=== PATIENT | female | born 1975 | race Caucasian/White ===

== ENCOUNTER 2020-01-25 07:36 | Inpatient (IN) | payer OTHER ==
[~2020-01-25] VITALS: Ht 167.6 cm; Wt 62.6 kg
[2020-01-25 07:40] VITALS: Ht 167.6 cm; Wt 62.6 kg
[2020-01-25 08:06] LABS: BASOPHIL % 1.4 % (0-2); PLATELET COUNT 204 x10^3mcL (130-400)
[2020-01-25 08:29] LABS: CALCIUM 7.9 mg/dL (8.5-10.1); CARBON DIOXIDE 24.8 mmol/L (21-32); CHLORIDE SERUM 110 mmol/L (98-107); CREATININE SERUM 0.7 mg/dL (0.6-1.0); GFR1 > 60 mL/min; GLUCOSE SERUM 71 mg/dL (74-106); POTASSIUM SERUM 3.9 mmol/L (3.5-5.1); SODIUM SERUM 142 mmol/L (136-145)
[2020-01-25 08:34] LABS: ALBUMIN 3.2 g/dL (3.4-5.0); ALKALINE PHOSPHATASE 46 U/L (46-116); ALT/SGPT 25 U/L (14-59); AST/SGOT 19 U/L (15-37); BILIRUBIN TOTAL 0.4 mg/dL (0.20-1.00); TOTAL PROTEIN, SERUM 6.7 g/dL (6.4-8.2)
[2020-01-25 09:13] LABS: RED CELL DISTRIBUTION WIDTH 26.5 % (11.5-14.5)
[2020-01-25 09:56] LABS: rbc morphology (normal/abnorm) ABNORMAL (NORMAL)
[2020-01-25 09:58] LABS: rbc morphology (normal/abnorm) ABNORMAL (NORMAL)
[2020-01-25 10:39] LABS: TOTAL IRON BINDING CAPACITY 380 ug/dL (250-450)
[2020-01-25 10:40] LABS: IRON 21 ug/dL (50-170)
[2020-01-25 11:51] LABS: FREE T4 0.81 ng/dL (0.76-1.46)
[2020-01-25 11:53] LABS: FREE THYROXINE INDEX 1.3 ug/dL (1.4-4.5); T4(THYROXINE) 3.7 ug/dL (4.7-13.3)
[2020-01-25 12:41] LABS: T3 TOTAL 0.7 ng/mL
[2020-01-25 13:13] VITALS: BP 130/80
[2020-01-25 16:45] LABS: BASOPHIL % 0.7 % (0-2); PLATELET COUNT 176 x10^3mcL (130-400)
[2020-01-25 16:47] LABS: RED CELL DISTRIBUTION WIDTH 27.1 % (11.5-14.5)
[2020-01-25 17:13] LABS: rbc morphology (normal/abnorm) ABNORMAL (NORMAL)
[2020-01-25 17:53] VITALS: BP 123/72
[2020-01-25 20:59] VITALS: BP 114/85
[2020-01-26 02:33] LABS: UA SPECIFIC GRAVITY 1.025 (1.005-1.035); microscopic required? YES; urine erythrocyte 3+ (NEGATIVE)
[2020-01-26 03:20] LABS: AMPHETAMINE QUAL UR POSITIVE (See below)
[2020-01-26 05:29] VITALS: BP 115/79
[2020-01-26 06:08] LABS: CALCIUM 7.8 mg/dL (8.5-10.1); CARBON DIOXIDE 23.5 mmol/L (21-32); CHLORIDE SERUM 108 mmol/L (98-107); CREATININE SERUM 0.6 mg/dL (0.6-1.0); GFR1 > 60 mL/min; GLUCOSE SERUM 92 mg/dL (74-106); MAGNESIUM 1.7 mg/dL (1.8-2.4); PHOSPHOROUS 3.4 mg/dL (2.5-4.9); POTASSIUM SERUM 3.8 mmol/L (3.5-5.1); SODIUM SERUM 139 mmol/L (136-145)
[2020-01-26 07:08] LABS: PLATELET COUNT 194 x10^3mcL (130-400)
[2020-01-26 07:51] LABS: RED CELL DISTRIBUTION WIDTH 25.9 % (11.5-14.5)
[2020-01-26 09:19] VITALS: BP 128/73
[2020-01-26 11:10] LABS: MONOCYTE 6 % (0-7)
[2020-01-26 11:12] LABS: SEGMENTED NEUTROPHILS 68 % (37-75)
[2020-01-26 11:13] LABS: burr cell (echinocyte) 1+; ovalocyte/elliptocyte 1+; rbc morphology (normal/abnorm) ABNORMAL (NORMAL)
[2020-01-26 13:07] VITALS: BP 135/90
[2020-01-26] MEDS ORDERED: FER300 PO (16:13)
[2020-01-26] MEDS ORDERED: PROV5 PO (16:14)
[2020-01-26 16:30] VITALS: BP 135/90
== END 2020-01-26 17:25 | disposition home or self-care (01) | DRG 663 ==
LOC: ED 07:36 → MU 10:19
PROVIDERS: Emergency Medicine; ADMIT Internal Medicine
PROC: 30233N1 Transfusion of Nonautologous Red Blood Cells into Peripheral Vein, Percutaneous Approach (ICD-10-PCS; principal; 2020-01-25)
DX: D64.9 Anemia, unspecified (principal); I48.0 Paroxysmal atrial fibrillation; N92.1 Excessive and frequent menstruation with irregular cycle; I10 Essential (primary) hypertension; R00.1 Bradycardia, unspecified; D32.9 Benign neoplasm of meninges, unspecified; F15.10 Other stimulant abuse, uncomplicated; Z98.84 Bariatric surgery status; Z68.21 Body mass index [BMI] 21.0-21.9, adult
CPT/HCPCS: 84439; 87491; 87591; 90658; G0378; J7030; J7040; P9016; Q0092; Q0163